=== PATIENT | female | born 1985 | race American Indian/Alaskan Native ===

== ENCOUNTER 2018-11-15 10:45 | Emergency (ER) | payer OTHER ==
[2018-11-15 11:16] VITALS: BP 138/90; PULSE 87; RESP 18; TEMP 98.5; O2SAT 100
== END 2018-11-15 12:48 | disposition left against medical advice (07) ==
LOC: C.ER 10:45
DX: Z02.89 Encounter for other administrative examinations (principal); M79.89 Other specified soft tissue disorders